=== PATIENT | female | born 1960 | race Caucasian/White ===

== ENCOUNTER 2018-10-30 12:41 | Inpatient (IN) | payer OTHER ==
[~2018-10-30] VITALS: Ht 170.2 cm; Wt 97.5 kg
[~2018-10-30 12:41] MED LIST: NOHOMEMEDICATIONS; PERCOCET 5-3251 EACH PO
[2018-10-30 12:42] VITALS: BP 136/85
[2018-10-30 13:00] LABS: PLATELET COUNT 400 thou/uL (150-400)
[2018-10-30 13:02] LABS: ABSOLUTE NEUTROPHILS 6.7 thou/uL (1.4-8.2); BASOPHILS 1.2 % (0.0-2.0); HEMATOCRIT 44.5 % (37.0-47.0); HEMOGLOBIN 15.7 gm/dL (12.0-15.0); LYMPHOCYTES 20.5 % (24.0-44.0); MCH 29.8 pg (26.0-34.0); MCHC 35.2 g/dL (28.0-37.0); MCV 84.7 fL (80.0-100.0); MONOCYTES 6.2 % (1.0-8.0); POLYS 71.1 % (36.0-66.0); RBC 5.26 mil/uL (4.20-5.00); RDW 13.1 % (10.5-14.5); WBC 9.4 thou/uL (4.0-11.0)
[2018-10-30 13:19] LABS: ANION GAP 10 mmol/L (7-16); BUN 25 mg/dL (7-18); CALCIUM 9.4 mg/dL (8.5-10.1); CHLORIDE 99 mmol/L (98-107); CO2 29 mmol/L (21-32); CREATININE 0.8 mg/dL (0.6-1.0); GLUCOSE 112 mg/dL (74-106); SODIUM 138 mmol/L (136-145); TROPONIN-I <0.06 ng/mL (<0.06)
[2018-10-30 13:20] LABS: POTASSIUM 2.4 mmol/L (3.5-5.1)
[2018-10-30 15:23] VITALS: BP 102/54
[2018-10-30 16:03] LABS: CHOLESTEROL 300 mg/dL (<200); HDL CHOLESTEROL 77 mg/dL (>40); LDL CHOLESTEROL 199 mg/dL (<100); TC:HDL 3.9 Ratio (Not establshd); TRIGLYCERIDE 124 mg/dL (<150); VLDL 25 mg/dL (<40)
[2018-10-30 16:05] VITALS: BP 101/41
[2018-10-30 16:32] VITALS: BP 133/81
--- NOTE | 2018-10-30 17:17 | EKG ---
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1960 Requested By: Kieran Boston Order Number: [id number] MD: Marshal Jerome Measurements Intervals [place] Rate: 88 P: 51 FL: 144 QRS: -10 QRSD: 108 T: 16 QT: 371 QTc: 449 Interpretive Statements Sinus rhythm Borderline T wave abnormalities No previous ECG available for comparison Electronically Signed On 10-30-2018 17:17:10 CDT by Marshal Jerome [email or web address] ��������������������������������������������� <ELECTRONICALLY SIGNED> ���������������������������������������� By: Marshal Jeroem MD ��������������������������������������������� 10/30/18 1717 1301 130 Marshal Jerome MD /MAGDALENA
--- NOTE | 2018-10-30 17:17 | EKG ---
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1960 Requested By: Kieran Boston Order Number: [id number] MD: Marshal Jerome Measurements Intervals [place] Rate: 89 P: 55 SC: 138 QRS: -7 QRSD: 108 T: 37 QT: 383 QTc: 467 Interpretive Statements Sinus rhythm No previous ECG available for comparison Electronically Signed On 10-30-2018 17:17:06 CDT by Marshal Jerome [email or web address] ��������������������������������������������� <ELECTRONICALLY SIGNED> ���������������������������������������� By: Marshal Jerome MD ��������������������������������������������� 10/30/18 1717 1243 1243 MD LOGAN Faith
[2018-10-30 19:08] VITALS: BP 136/76
[2018-10-30 23:50] VITALS: BP 120/76
[2018-10-31 05:00] VITALS: BP 121/70
[2018-10-31 05:18] LABS: HEMATOCRIT 43.5 % (37.0-47.0); HEMOGLOBIN 15.1 gm/dL (12.0-15.0); MCH 29.2 pg (26.0-34.0); MCHC 34.6 g/dL (28.0-37.0); MCV 84.3 fL (80.0-100.0); RBC 5.16 mil/uL (4.20-5.00); RDW 13.2 % (10.5-14.5)
[2018-10-31 05:41] LABS: ANION GAP 10 mmol/L (7-16); BUN 15 mg/dL (7-18); CALCIUM 9.3 mg/dL (8.5-10.1); CHLORIDE 99 mmol/L (98-107); CO2 30 mmol/L (21-32); CREATININE 0.9 mg/dL (0.6-1.0); GLUCOSE 105 mg/dL (74-106); POTASSIUM 3.3 mmol/L (3.5-5.1); SODIUM 139 mmol/L (136-145); TROPONIN-I <0.06 ng/mL (<0.06)
[2018-10-31 07:17] VITALS: BP 124/66
[2018-10-31] MEDS ORDERED: ZYRTEC10 M5 PO (08:33)
[2018-10-31] MEDS ORDERED: MUCINEX600 MG PO (08:33)
--- NOTE | 2018-10-31 09:47 | 2DMMODE ---
[facility] [place] [address] 2 D/M-MODE ECHOCARDIOGRAM Name: AMELIA AN Room #: 363-P [facility] IN M.R.#: [id number] ������������� Admission: 10/30/18 ������������� Attend Phys: Zana Albright MD Discharge: ��� ������������� ��� Date of : 60 Date of Service: 10/31/18 0947 �� Report #: [id number] �������� ��������������������������������������������[id number] THIS REPORT FOR: //name// APPROVED REPORT Study performed: 10/31/2018 08:32:00 EXAM: Comprehensive 2D, Doppler, and color-flow Echocardiogram Patient Location: Echo lab Room #: 363 Status: routine BSA: 2.09 HR: 79 bpm BP: 124/66 mmHg Rhythm: NSR Other Information Study Quality: Good Indications Dyspnea Chest Pain 2D Dimensions RVDd: 35.85 mm IVSd: 9.05 (7-11mm) LVOT Diam: 22.10 (18-24mm) LVDd: 43.04 mm PWd: 10.41 (7-11mm) Ascending Ao: 24.38 (22-36mm) LVDs: 27.90 (25-40mm) Aortic Root: 27.40 mm IVC: 17.00 mm Volumes Left Atrial Volume (Systole) Single Plane 4CH: 26.89 mL Single Plane 2CH: 26.41 mL LA ESV Index: 14.00 mL/m2 Aortic Valve AoV Peak Antony.: 1.07 m/s AO Peak Gr.: 4.57 mmHg LVOT Max P.12 mmHg LVOT Max V: 0.88 m/s BRI Vmax: 3.17 cm2 Mitral Valve E/A Ratio: 0.8 MV Decel. Time: 387.92 ms [facility] [place] [address] 2 D/M-MODE ECHOCARDIOGRAM Name: AMELIA AN Kateryna Room #: 363-P [facility] IN [facility].#: [id number] ������������� Admission: 10/30/18 ������������� Attend Phys: Zana Albright MD Discharge: ��� ������������� ��� Date of : 60 Date of Service: 10/31/18 0947 �� Report #: [id number] �������� ��������������������������������������������[id number] MV E Max Antony.: 0.40 m/s MV A Antony.: 0.49 m/s MV PHT: 112.50 ms IVRT: 87.66 ms Pulmonary Valve PV Peak Antony.: 0.78 m/s PV Peak Gr.: 2.44 mmHg Pulmonary Vein P Vein S: 0.54 m/s P Vein A: 0.44 m/s P Vein D: 0.38 m/s P Vein A Dur.: 96.9 msec P Vein S/D Ratio: 1.42 Tricuspid Valve TR Peak Antony.: 2.07 m/s TR Peak Gr.: 17.13 mmHg PA Pressure: 22.00 mmHg Left Ventricle The left ventricle is normal size. There is normal LV segmental wall motion. There is normal left ventricular wall thickness. Left ventricular systolic function is normal. The left ventricular ejection fraction is within the normal range. LVEF is 60-65%. Grade I - abnormal relaxation pattern. Right Ventricle The right ventricle is normal size. The right ventricular systolic function is normal. Atria The left atrium size is normal. The right atrium size is normal. Aortic Valve The aortic valve is normal in structure. No aortic regurgitation is present. There is no aortic valvular stenosis. Mitral Valve The mitral valve is normal in structure. There is no mitral valve regurgitation noted. No evidence of mitral valve stenosis. Tricuspid Valve The tricuspid valve is normal in structure. There is trace tricuspid regurgitation. Estimated PAP 22 mmHg. There [place] [address] 2 D/M-MODE ECHOCARDIOGRAM Name: AMELIA AN Kateryna Room #: 363-P [facility] IN [facility]#: [id number] ������������� Admission: 10/30/18 ������������� Attend Phys: Zana Albright MD Discharge: ��� ������������� ��� Date of : 60 Date of Service: 10/31/18 0947 �� Report #: [id number] �������� ��������������������������������������������[id number] Pulmonic Valve The pulmonary valve is normal in structure. There is no pulmonic valvular regurgitation. Great Vessels The aortic root is normal in size. IVC is normal in size and collapses >50% with inspiration. Pericardium There is no pericardial effusion. <Conclusion> The left ventricle is normal size. There is normal left ventricular wall thickness. Left ventricular systolic function is normal. Grade I - abnormal relaxation pattern. The right ventricle is normal size. The left atrium size is normal. The aortic valve is normal in structure. There is no mitral valve regurgitation noted. There is trace tricuspid regurgitation. Estimated PAP 22 mmHg. ��������������������������������������������� <ELECTRONICALLY SIGNED> ���������������������������������������� By: Ted Osorio MD ��������������������������������������������� 10/31/1847 Ted Osorio MD /INF
[2018-10-31 12:03] VITALS: BP 124/66
== END 2018-10-31 12:30 | disposition home or self-care (01) | DRG 189 ==
LOC: ER 12:41 → 3W 13:42 → EROBS 13:42 → 3W 16:05
PROVIDERS: Emergency Medicine; Nurse Practitioner Gerontology; ADMIT Hospitalist
DX: J96.01 Acute respiratory failure with hypoxia (principal); G43.909 Migraine, unspecified, not intractable, without status migrainosus; E87.6 Hypokalemia; E78.5 Hyperlipidemia, unspecified; J06.9 Acute upper respiratory infection, unspecified; R07.89 Other chest pain; J32.9 Chronic sinusitis, unspecified; J40 Bronchitis, not specified as acute or chronic; I10 Essential (primary) hypertension; Z88.6 Allergy status to analgesic agent; Z90.49 Acquired absence of other specified parts of digestive tract; Z82.49 Family history of ischemic heart disease and other diseases of the circulatory system; Z79.899 Other long term (current) drug therapy
CPT/HCPCS: 10879